=== PATIENT | male | born 1960 | race African-American/Black ===

== ENCOUNTER 2025-02-13 09:35 | Outpatient (CLI) | payer BC | END 2025-02-13 09:36 | disposition home or self-care (01) | LOC: CSHCT 09:35 | PROVIDERS: ATTEND Student in an Organized Health Care Education/Training Program | DX: J98.59 Other diseases of mediastinum, not elsewhere classified (principal); Z98.890 Other specified postprocedural states | CPT/HCPCS: 71250 ==

== ENCOUNTER 2025-05-24 13:38 | Outpatient (CLI) | payer BC | END 2025-05-24 13:39 | disposition home or self-care (01) | LOC: CSHRAD 13:38 | PROVIDERS: ATTEND Family Medicine | DX: N30.41 Irradiation cystitis with hematuria (principal); L59.8 Other specified disorders of the skin and subcutaneous tissue related to radiation | CPT/HCPCS: 71046 ==

== ENCOUNTER 2025-05-28 08:09 | Outpatient (CLI) | payer BC | END 2025-05-28 08:10 | disposition home or self-care (01) | LOC: CSHWCC 08:09 | PROVIDERS: ATTEND Nurse Practitioner Family | DX: N30.41 Irradiation cystitis with hematuria (principal); L59.8 Other specified disorders of the skin and subcutaneous tissue related to radiation | CPT/HCPCS: G0277 ==

== ENCOUNTER 2025-05-30 08:40 | Outpatient (CLI) | payer BC | END 2025-05-30 08:41 | disposition home or self-care (01) | LOC: CSHWCC 08:40 | PROVIDERS: ATTEND Nurse Practitioner Family | DX: L59.8 Other specified disorders of the skin and subcutaneous tissue related to radiation (principal); N30.41 Irradiation cystitis with hematuria | CPT/HCPCS: G0277 ==

== ENCOUNTER 2025-06-17 08:15 | Outpatient (CLI) | payer BC | END 2025-06-17 08:16 | disposition home or self-care (01) | LOC: CSHWCC 08:15 | PROVIDERS: ATTEND Nurse Practitioner Family | DX: N30.41 Irradiation cystitis with hematuria (principal); L59.8 Other specified disorders of the skin and subcutaneous tissue related to radiation | CPT/HCPCS: G0277 ==